=== PATIENT | female | born 1960 | race African-American/Black ===

== ENCOUNTER 2020-02-10 07:15 | Outpatient (CLI) | payer BC, SELFPAY ==
--- NOTE | ~2020-02-10 | US_ITS ---
EXAMINATION: US right upper quadrant EXAM DATE: 02/10/2020 07:58 INDICATION: Elevated liver enzymes. TECHNIQUE: Multiple grayscale and Doppler images of the abdomen right upper quadrant were obtained (patricia y a technologist who performed the scan) and subsequently reviewed. There is no prior study for jody bansal. FINDINGS: The pancreatic head and body are normal in appearance. The pancreatic tail is not visualized. The l iver has normal echogenicity and contour. There are no focal liver lesions identified. There is no evidence of intrahepatic biliary duct dilation. Portal venous flow was seen in the hepatopedal, nor mal direction and has normal Doppler waveform. No right-sided hydronephrosis. Common bile duct measures 4 mm, which is normal. The gallbladder wall is normal in thickness, with ex pected amount of distention. No sonographic evidence of pericholecystic fluid. There is no cholelit hiases. Technologist performing exam reports patient did not demonstrate sonographic Jaramillo's sign. Please note that this sign is less reliable in patients who have received pain medication. IMPRESSION: 1. Unremarkable abdominal ultrasound exam. Reviewed, dictated and finalized at location B.
== END 2020-02-10 07:16 | disposition home or self-care (01) ==
PROVIDERS: PCP Family Medicine; Visit Provider Family Medicine
DX: R74.8 Abnormal levels of other serum enzymes (principal)
CPT/HCPCS: 76705

== ENCOUNTER 2021-10-25 00:29 | Day surgery (SDC) | payer BC, SELFPAY ==
[2021-10-18 11:50] VITALS: BMI 38.9
--- NOTE | 2021-10-24 10:18 | WPDANESEPPF ---
Anes - Initial Pre Proc Eval Procedure: Operation Date: 10/25/21 10:00 Proposed Procedures p Screening Colonoscopy - Sorin Lora MD Date/Time: 10/24/21 10:18 Surgeon: Sorin Lora MD Pre Op Diagnosis: hx of colon polyps Patient Data Age: 61 Gender: F Height: 1.65 m Weight: 106 kg Allergies Allergy/AdvReac Type Severity Reaction Status Date / Time IVETH Inhibitors Allergy Unknown cough Verified 10/25/21 09:01 Home Medications Medication Instructions Recorded Confirmed Type estradiol 0.05 mg/24 hr weekly 1 patch TRANSDERMAL WEEKLY 06/05/21 10/25/21 History transdermal patch omeprazole 20 mg capsule,delayed 20 mg PO DAILY #90 cap 09/07/21 10/25/21 Rx release amlodipine 5 mg tablet 5 mg PO DAILY #90 tablet 09/13/21 10/25/21 Rx ergocalciferol (vitamin D2) 1,250 50,000 unit PO WEEKLY #14 cap 09/13/21 10/25/21 Rx mcg (50,000 unit) capsule olmesartan 40 mg tablet 40 mg PO DAILY #90 tablet 09/13/21 10/25/21 Rx tramadol 50 mg tablet 50 mg PO BID PRN #60 tablet 09/13/21 10/25/21 Rx biotin 10,000 mcg PO DAILY 10/18/21 10/25/21 History calcium carbonate [Matt-500] 500 mg PO DAILY 10/18/21 10/25/21 History mecobalamin (vitamin B12) [B12 1,000 mcg PO DAILY 10/18/21 10/25/21 History Active] lyxxldwdzckh-kxk-zufv-FA-vit K 1 cap PO DAILY 10/18/21 10/25/21 History [Bariatric Multivitamins] tizanidine 2 mg PO PRN PRN 10/18/21 10/25/21 History Patient hx anesthesia problems: none Family hx anesthesia problems: none Results Review: All pre-operative results and documents have been reviewed as part of the pre-operative evaluation. [facility] Past Medical History Medical History Arthritis of knee BP (high blood pressure) Chronic pain Mixed hyperlipidemia Obesity (BMI 35.0-39.9 without comorbidity) Surgical History Surgical History Hx of hysterectomy Hx of tonsillectomy S/P bariatric surgery gastric sleeve 2019 Family History Family History Mother Hypertension Family history of elevated blood lipids Family history of diabetes mellitus in first degree relative Social History Social History Social History: Smoking status: Never smoker Second hand tobacco smoke exposure: No Alcohol intake: never Substance use: never Substance use type: does not use Living arrangements: alone Gender identity (if verbalized by the patient): Female Sexual Orientation (if Verbalized by the Patient): Straight or Heterosexual Spiritual care concerns: No Anes - Eval Final PreProcedure Day of Procedure 10/24/21 10:18 Patient weight: obese Heart: regular rate and rhythm Lungs: clear to auscultation and normal air movement Airway: Mallampati scale class II Neurological: alert and oriented Last oral intake: >/= 8 hours ASA classification: III Emergent: no Anesthetic plan: proceed Anesthesia type and monitoring: general GIVS and standard monitoring Results Review: All pre-operative results and documents have been reviewed as part of the pre-operative evaluation. Informed Consent: The patient's anesthetic plan and its attendant risks and benefits were discussed with the patient/family/POA. Questions were solicited and answers provided to the satisfaction of the patient/family/POA.
--- NOTE | 2021-10-24 15:31 | PM.HPGS ---
History of Present Illness History of Present Illness Consent: Risks, benefits, and alternatives have been discussed and questions answered. Patient agrees to proceed with procedure. Chief complaint: hx of colon polyps Narrative: Justin Copeland is a 61 year old female referred for colon cancer screening. She has small polyp removed about 5 years ago. Review of Systems Review of Systems: All systems reviewed & are unremarkable except as noted in HPI and below PMFSH Past Medical History Medical History Arthritis of knee BP (high blood pressure) Chronic pain Mixed hyperlipidemia Obesity (BMI 35.0-39.9 without comorbidity) Surgical History Surgical History Hx of hysterectomy Hx of tonsillectomy S/P bariatric surgery gastric sleeve 2019 Family History Family History Mother Hypertension Family history of elevated blood lipids Family history of diabetes mellitus in first degree relative Social History Social History Social History: Smoking status: Never smoker Second hand tobacco smoke exposure: No Alcohol intake: never Substance use: never Substance use type: does not use Living arrangements: alone Gender identity (if verbalized by the patient): Female Sexual Orientation (if Verbalized by the Patient): Straight or Heterosexual Spiritual care concerns: No Meds Home Medications and Allergies Home Medications Medication Instructions Recorded Confirmed Type estradiol 0.05 mg/24 hr weekly 1 patch TRANSDERMAL WEEKLY 06/05/21 10/25/21 History transdermal patch omeprazole 20 mg capsule,delayed 20 mg PO DAILY #90 cap 09/07/21 10/25/21 Rx release amlodipine 5 mg tablet 5 mg PO DAILY #90 tablet 09/13/21 10/25/21 Rx ergocalciferol (vitamin D2) 1,250 50,000 unit PO WEEKLY #14 cap 09/13/21 10/25/21 Rx mcg (50,000 unit) capsule olmesartan 40 mg tablet 40 mg PO DAILY #90 tablet 09/13/21 10/25/21 Rx tramadol 50 mg tablet 50 mg PO BID PRN #60 tablet 09/13/21 10/25/21 Rx biotin 10,000 mcg PO DAILY 10/18/21 10/25/21 History calcium carbonate [Matt-500] 500 mg PO DAILY 10/18/21 10/25/21 History mecobalamin (vitamin B12) [B12 1,000 mcg PO DAILY 10/18/21 10/25/21 History Active] xifpuaasxscm-jax-lekx-FA-vit K 1 cap PO DAILY 10/18/21 10/25/21 History [Bariatric Multivitamins] tizanidine 2 mg PO PRN PRN 10/18/21 10/25/21 History Allergies Allergy/AdvReac Type Severity Reaction Status Date / Time IVETH Inhibitors Allergy Unknown cough Verified 10/25/21 09:01 Exam Resp: Auscultation: clear to auscultation bilaterally Cardio: Rate: regular rate Rhythm: regular rhythm GI: GI Palp: Yes Soft to palpation and No Tenderness to palpation present (GI) Assessment and Plan Assessment and plan (1) Colon cancer screening: Code(s): Z12.11 - Encounter for screening for malignant neoplasm of colon Status: Acute Assessment and Plan: Colonoscopy with possible biopsy or polypectomy or cautery or injection of substances.
[2021-10-25 09:02] VITALS: BP 151/93; PULSE 66; RESP 18; TEMP 36.9; O2SAT 100
[2021-10-25] MEDS: LACTATED RINGERS 1,000 ML 150 ML IV CONT (09:11)
[2021-10-25 10:14] VITALS: BP 104/64; PULSE 71; RESP 24; O2SAT 99
[2021-10-25 10:24] VITALS: BP 130/84; PULSE 60; RESP 24; O2SAT 100
[2021-10-25 10:34] VITALS: BP 136/84; PULSE 50; RESP 17; O2SAT 100
== END 2021-10-25 10:50 | disposition home or self-care (01) ==
PROVIDERS: PCP Family Medicine; Visit Provider Internal Medicine Gastroenterology
PROC: 0DJD8ZZ Inspection of Lower Intestinal Tract, Via Natural or Artificial Opening Endoscopic (ICD-10-PCS; CPT 45378; principal; 2021-10-25 10:00)
DX: Z12.11 Encounter for screening for malignant neoplasm of colon (principal); K63.5 Polyp of colon; I10 Essential (primary) hypertension; E78.2 Mixed hyperlipidemia; G89.29 Other chronic pain; M17.10 Unilateral primary osteoarthritis, unspecified knee; Z98.84 Bariatric surgery status
CPT/HCPCS: 45385; 88305; J2704; J7120

== ENCOUNTER → 2023-07-28 10:26 | Outpatient (CLI) | payer BC, SELFPAY ==
--- NOTE | ~2023-07-28 | DEXA_ITS ---
Bone Density Report Name: JACKIE HALL V Age: 62 Sex: Female Ethnicity: Black Date of : 1960 Indication: postmenopausal; screening for osteoporosis; parental hip fracture; height loss; hysterectomy; Referring Provider: ZO MOSES Study: Bone densitometry was performed. Exam Date: July 28, 2023 Accession number: [id number] Bone Density: Region BMD T-score Z-score Classification AP Spine (L1-L4) 1.099 0.5 1.5 Normal Femoral Neck (Left) 0.709 -1.3 -0.4 Osteopenia Total Hip (Left) 0.891 -0.4 0.1 Normal Femoral Neck (Right) 0.804 -0.4 0.2 Normal Total Hip (Right) 0.907 -0.3 0.2 Normal Total Hip Mean 0.899 -0.4 0.2 Normal World Health Organization criteria for BMD impression classify patients as: Normal (T-score at or above -1.0), Osteopenia (T-score between -1.0 and -2.5), or Osteoporosis (T-score at or below -2.5). 10-year Fracture Risk(1): Major Osteoporotic Fracture 6.7% Hip Fracture 0.3% Reported Risk Factors: [place] (Black), Neck BMD=0.709, BMI=38.2, parental fracture (1) FRAX(R) Version 3.08. Fracture probability calculated for an untreated patient. Fracture probability may be lower if the patient has received treatment. Clinical Information Provided by Patient: Parent has had a hip fracture Has used the following medications: Vitamin D, Calcium, MTV Has the following medical conditions: Hysterectomy Patient maximum height was 66 Menopause Age: 44 Does not regularly consume dairy products Drinks caffeinated beverages Onset of menses at age 10 Number of children 3 Impression: The patient has low bone mass, based on the Left Femoral Neck T-score. The patient has an estimated ten-year risk of hip fracture of 0.3% and an estimated ten-year risk of major fracture of 6.7%, based on the WHO FRAX algorithm. The patient has risk factors, including: parental hip fracture. Discussion: BONE DENSITY IS LOW AT ONE OR MORE SKELETAL SITES. This patient's lowest T-score is low at one or more skeletal sites. It meets the World Health Organization's (WHO) criteria for ?low bone mass? (T-score between -1.0 and -2.5). The patient's 10-year risk of fracture as calculated by FRAX is less than the threshold where pharmacological therapy is recommended by the National Osteoporosis Foundation (NOF). However, all treatment decisions require clinical judgment and consideration of individual patient factors, including patient preferences, comorbidities, previous drug use, risk factors not captured in the FRAX model (e.g., frailty, falls, vitamin D deficiency, increased bone turnover, interval significant decline in bone density) and possible under or overestimation of fracture risk by FRAX. The patient should follow a healthful lifestyle (good nutrition with adequate calcium and vitamin D, and andrei
--- NOTE | ~2023-07-28 | MM_ITS ---
EXAMINATION: MM screening dontae BI w paul HISTORY: Screening TECHNIQUE: Craniocaudal and mediolateral oblique 3-D tomosynthesis images were obtained and synthetic 2-D images were generated. CAD analysis was submitted and interpreted. COMPARISON: Comparison to multiple prior studies sequentially, with oldest reviewed study dated 01/27. BREAST PARENCHYMAL COMPOSITION: There are scattered areas of fibroglandular density. FINDINGS: There is no evidence of suspicious mass, calcification, or architectural distortion to sugg est malignancy in either breast. There has been no suspicious interval change. IMPRESSION: 1. No mammographic evidence of malignancy. 2. Recommend routine screening mammography in one year. BI-RADS Category 1: Negative Reviewed, dictated and finalized at location A. GRAPHY TECHNICIAN
== END ==
PROVIDERS: PCP Family Medicine; Visit Provider Family Medicine
DX: Z12.31 Encounter for screening mammogram for malignant neoplasm of breast (principal); Z78.0 Asymptomatic menopausal state; M85.852 Other specified disorders of bone density and structure, left thigh
CPT/HCPCS: 77063; 77067; 77080